=== PATIENT | male | born 1980 | race Caucasian/White ===

== ENCOUNTER 2016-12-09 10:51 | Emergency (ER) | payer SELFPAY ==
[~2016-12-09] VITALS: Ht 172.7 cm; Wt 68.0 kg
--- NOTE | 2016-12-09 10:55 | NUR ---
Patient is AOx4, verbally aggressive during triage process, respiration:easy, MUELLER, comfort and safety measures initiated.
--- NOTE | 2016-12-09 11:07 | NUR ---
Patient is resting comfortably on gurney with eyes closed, NAD.
[2016-12-09 11:49] LABS: CREATININE 0.9 mg/dL (0.6-1.3); POTASSIUM 3.3 mmol/L (3.5-5.1)
[2016-12-09 11:55] LABS: BILIRUBIN,TOTAL 0.8 mg/dL (0.2-1.0); TOTAL PROTEIN, SERUM 7.5 g/dL (6.4-8.2)
[2016-12-09 11:56] LABS: BASOPHILS % (AUTO) 0.1 % (0.0-2.0); EOSINOPHILS % (AUTO) 0.2 % (0.0-7.0); HEMOGLOBIN 14.5 G/DL (14.0-18.0); LYMPHOCYTES # (AUTO) 0.8 K/UL (0.8-4.8); MEAN CORPUSCULAR HEMOGLOBIN 28.9 UUG (27.0-31.0); MEAN CORPUSCULAR HGB CONC 34 g/dL (32.0-37.0); MEAN CORPUSCULAR VOLUME 85.5 FL (82.0-92.0); MONOCYTES # (AUTO) 0.8 K/UL (0.1-1.30); MONOCYTES % (AUTO) 6.1 % (0.0-11.0); NEUTROPHILS # (AUTO) 12.2 K/UL (1.8-8.9); NEUTROPHILS % (AUTO) 87.6 % (38.5-71.5); PLATELET COUNT (AUTO) 161 K/UL (150-450); RED BLOOD CELL COUNT(AUTO) 5.03 MIL/UL (4.7-6.1); WHITE BLOOD COUNT (AUTO) 13.8 K/UL (4.0-11.2)
[2016-12-09] MEDS ORDERED: IBUPROFEN 600 MG TABLET PO ONE (13:15)
--- NOTE | 2016-12-09 13:17 | NUR ---
Patient discharged to home in stable conditon. Written and verbal after care instructions given to patient. Patient verbalizes understanding of instructions to follow-up with his PMD but refused to sign the discharge papers. chemical supervisor was requested for staff safety.
[2016-12-09] MEDS ORDERED: IBUPROFEN 600 MG TABLET ONE (13:22)
== END 2016-12-09 13:17 | disposition home or self-care (01) ==
LOC: ER 10:52
DX: B34.9 Viral infection, unspecified (principal)
CPT/HCPCS: 36415; 80053; 85025; 87400; 99284; A4663

== ENCOUNTER 2022-04-09 10:39 | Inpatient (IN) | payer OTHER ==
[~2022-04-09] VITALS: Ht 175.3 cm; Wt 81.6 kg
[2022-04-09 12:17] LABS: HEMATOCRIT 35.9 % (36.7-47.1); MEAN CORPUSCULAR VOLUME 79.5 fL (73.0-96.2); PLATELET COUNT (AUTO) 309 K/uL (152-348)
--- NOTE | 2022-04-09 12:28 | NUR ---
PT IS IN ROOM #1B. DR CLEMENTE EVALUATED THE PT.
[2022-04-09 12:29] LABS: NEUTROPHILS % (MANUAL) 0 % (42-75)
[2022-04-09] MEDS ORDERED: VANCOMYCIN IV 1,500 MG in IV DEXTROSE 5% 250 ML IV ONE (12:30)
[2022-04-09] MEDS ORDERED: IV NS 1000 ML 1,000 ML IV ONE ×2 (12:30)
[2022-04-09] MEDS ORDERED: HYDROMORPHONE 1 MG/1 ML DISP.SYRIN IV ONE ×2 (12:30→13:45)
[2022-04-09] MEDS ORDERED: HYDROMORPHONE 1 MG/1 ML DISP.SYRIN ONE ×3 (12:33→20:55)
[2022-04-09] MEDS ORDERED: VANCOMYCIN IV 200 ML ONE (12:34)
[2022-04-09] MEDS ORDERED: VANCOMYCIN HCL 500 MG VIAL ONE (12:35)
[2022-04-09 12:36] LABS: ALANINE AMINOTRANSFERASE 33 U/L (16-63); ALKALINE PHOSPHATASE 165 U/L (50-136); ASPARTATE AMINOTRANSFERASE 16 U/L (15-37); BILIRUBIN,DIRECT 0.4 mg/dL (0.0-0.2); BILIRUBIN,TOTAL 0.8 mg/dL (0.2-1.0); CARBON DIOXIDE 33 mmol/L (21-32); CHLORIDE 95 mmol/L (98-107); CREATININE 0.8 mg/dL (0.6-1.3); GLUCOSE 115 mg/dL (74-106); TOTAL PROTEIN, SERUM 8.1 g/dL (6.4-8.2); UREA NITROGEN, BLOOD 11 mg/dL (7-18)
[2022-04-09 12:55] LABS: *BILIRUBIN,URIN 1+ (NEGATIVE); *BLOOD, URINE NEGATIVE (NEGATIVE); *CLARITY,URINE CLEAR (CLEAR); *COLOR,URINE YELLOW (YELLOW); *KETONES,URINE NEGATIVE (NEGATIVE); *UROBILINOGEN,URINE >=8.0 E.U./dl (NORMAL); LEUKOCYTE ESTERASE ,URINE NEGATIVE (NEGATIVE); NITRITE, URINE NEGATIVE (NEGATIVE); PH,URINE 6.5 (5.0-8.0); UGLUCOSE TRACE (NEGATIVE)
[2022-04-09] MEDS ORDERED: IV NORMAL SALINE 250 ML IV ONE (13:03)
[2022-04-09] MEDS ORDERED: IOHEXOL 300MG/ML 100 ML INFUS..BTL ONE (13:03)
[2022-04-09] MEDS ORDERED: SWABABLE VALVE TRANSFER SET EA MC ONE (13:03)
[2022-04-09] MEDS ORDERED: SULF1TAB48 PO (13:39)
[2022-04-09] MEDS ORDERED: OXYC30TA2 PO ×2 (13:41)
[2022-04-09 16:13] LABS: BACTERIA,URINE NONE SEEN /HPF (NONE SEEN); RBC,URINE 0-3 /HPF (0-3); WBC,URINE 0-3 /HPF (0-3)
[2022-04-09 16:14] LABS: MUCUS,URINE FEW /LPF (0-FEW); SQUAMOUS EPITHELIAL CELL,UR FEW /HPF (NONE SEEN)
[2022-04-09] MEDS ORDERED: MAGNESIUM HYDROXIDE 30 ML LIQUID UDC PO PRN (17:00)
[2022-04-09] MEDS ORDERED: IV NS 1000 ML 1,000 ML IV PRN (17:00)
[2022-04-09] MEDS ORDERED: ONDANSETRON 4 MG/2 ML VIAL IV PRN (17:00)
[2022-04-09] MEDS ORDERED: HYDROCODONE/APAP 10-325 MG TABLET PO PRN (17:00)
[2022-04-09] MEDS ORDERED: ACETAMINOPHEN 325 MG TABLET PO PRN (17:00)
[2022-04-09] MEDS ORDERED: REMEDY ESSENTIAL ZINC PASTE 113 GM TP PRN (17:00)
[2022-04-09] MEDS: HYDROMORPHONE 1 MG/1 ML DISP.SYRIN IV PRN ×2 (17:40→20:58)
[2022-04-09] MEDS ORDERED: PIPERACILLIN/TAZOBACTAM/D5W 50 ML IV ONE (17:41)
[2022-04-09] MEDS: PIPERACILLIN SODIUM/TAZOBACTAM 3.375 G in IV DEXTROSE 5% 50 ML IV SCH (17:50)
--- NOTE | 2022-04-09 18:26 | NUR ---
DR LIZANDRO ALDRIDGE AND DR HOFFMANN EVALUATED THE PT.
--- NOTE | 2022-04-09 20:27 | NUR ---
Report given to Nilda CAZARES. Patient will be going to third floor [address].
--- NOTE | 2022-04-09 21:16 | NUR ---
Patient taken to third floor room [address] via gurney with personal belongings. Patient in stable conditions, no signs of distress. Nilda CAZARES aware of patients arrival.
[2022-04-09 21:52] VITALS: BP 113/78
[2022-04-10] MEDS: OXYCODONE/APAP 5-325 MG TABLET PO PRN ×2 (00:22→21:52)
[2022-04-10] MEDS: ENOXAPARIN SODIUM 40 MG/0.4 ML DISP.SYRIN SQ SCH ×2 (00:23→20:29)
[2022-04-10] MEDS ORDERED: PIPERACILLIN SODIUM/TAZO 3.375 GM VIAL ONE (00:43)
[2022-04-10] MEDS: PIPERACILLIN SODIUM/TAZOBACTAM 3.375 G in IV DEXTROSE 5% 50 ML IV SCH ×4 (01:14→17:04)
[2022-04-10] MEDS: VANCOMYCIN IV 1,500 MG in IV DEXTROSE 5% 500 ML IV SCH ×2 (02:26→13:01)
[2022-04-10 04:40] VITALS: BP 127/84
[2022-04-10] MEDS: PANTOPRAZOLE SODIUM 40 MG TABLET.DR PO SCH (06:13)
[2022-04-10] MEDS: HYDROMORPHONE 1 MG/1 ML DISP.SYRIN IV PRN ×4 (06:15→20:19)
[2022-04-10 06:59] LABS: HEMATOCRIT 33.3 % (36.7-47.1); MEAN CORPUSCULAR HEMOGLOBIN 26.6 uug (23.8-33.4); PLATELET COUNT (AUTO) 313 K/uL (152-348)
[2022-04-10 07:29] LABS: CREATININE 0.8 mg/dL (0.6-1.3); MAGNESIUM 2.2 mg/dL (1.8-2.4); PHOSPHOROUS 3.4 mg/dL (2.5-4.9); POTASSIUM 3.3 mmol/L (3.5-5.1)
--- NOTE | 2022-04-10 08:26 | NUR ---
Patient arrived on the unit at 2105, from ER he is AAOX4. Patient was able to do his interview even though he looked very sleepy. No sign of respiratory distress observed. Patient is skin looks clean except for bilateral foot cellulitis and pitting edema observed upon assessment. His right hand has also swelling and redness. Patient did got some IV antibiotic; no sign of adverse effect observed or reported. Patient is very demanding of pain meds due to generalized pain specially when he is trying to urinate. Patient was also trying to have a BM but while interviewing patient he stated that he usually has a BM once every two weeks. Patient is still trying to have a BM this morning. We will continue to monitor patient for safety.
[2022-04-10] MEDS ORDERED: POTASSIUM CHLORIDE 10 MEQ TAB.PRT.SR PO ONE (08:30)
[2022-04-10] MEDS ORDERED: POTASSIUM CHLORIDE 20 MEQ TAB.PRT.SR PO ONE (10:30)
[2022-04-10 13:00] VITALS: BP 119/64
[2022-04-10 16:00] VITALS: BP 145/92
[2022-04-10 17:54] LABS: BAND % (MANUAL) 0 % (0-10); EOSINOPHILS % (MANUAL) 1 % (0-8); LYMPHOCYTES % (MANUAL) 8 % (20-40); MONOCYTES % (MANUAL) 15 % (2-10); NEUTROPHILS % (MANUAL) 76 % (42-75)
[2022-04-11] MEDS: PIPERACILLIN SODIUM/TAZOBACTAM 3.375 G in IV DEXTROSE 5% 50 ML IV SCH ×5 (00:16→23:50)
[2022-04-11] MEDS: HYDROMORPHONE 1 MG/1 ML DISP.SYRIN IV PRN ×6 (00:24→20:50)
[2022-04-11] MEDS: VANCOMYCIN IV 1,500 MG in IV DEXTROSE 5% 500 ML IV SCH (00:52)
[2022-04-11 04:55] VITALS: BP 139/92
--- NOTE | 2022-04-11 06:15 | NUR ---
Pt complained of pain throughout the night. Prn meds given as ordered Breakthrough med given x1. Pt continue on antibiotics Voiding without difficulty.
[2022-04-11] MEDS: PANTOPRAZOLE SODIUM 40 MG TABLET.DR PO SCH (06:31)
[2022-04-11] MEDS: OXYCODONE/APAP 5-325 MG TABLET PO PRN ×2 (06:32→18:00)
[2022-04-11 11:52] VITALS: BP 113/61
[2022-04-11] MEDS: VANCOMYCIN IV 1,250 MG in IV DEXTROSE 5% 250 ML IV SCH ×2 (14:55→22:01)
[2022-04-11 16:45] VITALS: BP 148/91
--- NOTE | 2022-04-11 16:53 | NUR ---
C/O pain throughout the day. Dilaudid frequency was increased from Q$H PRN to Q3H PRN per Dr. Pacheco. Patient requested each dose of Dilaudid 90 mins prior to due time. Educated on medication management and offered Percocet for break thru pain. However, patient decline offer. Temp elevated 101.7-Blood cultures drawn. Tylenol 650 mg administered.
[2022-04-11 20:25] VITALS: BP 128/77
[2022-04-11] MEDS: ENOXAPARIN SODIUM 40 MG/0.4 ML DISP.SYRIN SQ SCH (20:46)
[2022-04-12] MEDS: HYDROMORPHONE 1 MG/1 ML DISP.SYRIN IV PRN ×2 (00:51→03:46)
--- NOTE | 2022-04-12 03:48 | NUR ---
patient c/o pain and requesting for pain medication. Percocet breakthrough pain medication offered but patient refused to take it and started screaming and yelling for iv Dilaudid. education provided for medication management.
--- NOTE | 2022-04-12 04:20 | NUR ---
UNABLE TO LOCATE PATIENT IN HIS ROOM. EXERTED EFFORTS AND NOTIFIED APPROPRIATE PERSONNEL REGARDING PATIENT'S MISSING. PER SECURITY STAFF PATIENT RODE ON AN UBER AND LEFT AMA. FAMILY NOTIFIED AND ASK THEM TO CALL BACK THE HOSPITAL WHEN PATIENT REACH HOME SAFE.
== END 2022-04-12 05:02 | disposition left against medical advice (07) | DRG 872 ==
LOC: ER 10:39 → MEDSURG3 20:39
PROVIDERS: ADMIT Nurse Practitioner Acute Care; ATTEND Nurse Practitioner Acute Care
DX: A41.9 Sepsis, unspecified organism (principal); K61.0 Anal abscess; L03.115 Cellulitis of right lower limb; E87.20 Acidosis, unspecified; L02.818 Cutaneous abscess of other sites; M48.54XA Collapsed vertebra, not elsewhere classified, thoracic region, initial encounter for fracture; Z20.822 Contact with and (suspected) exposure to COVID-19; D64.9 Anemia, unspecified; G89.29 Other chronic pain; F17.210 Nicotine dependence, cigarettes, uncomplicated; D72.829 Elevated white blood cell count, unspecified; V29.99XS Rider (driver) (passenger) of other motorcycle injured in unspecified traffic accident, sequela; I89.0 Lymphedema, not elsewhere classified; I87.8 Other specified disorders of veins
CPT/HCPCS: 36415; 70030-TC; 83605; 83735; 84100; 84484; 85025; 85651; 85730; 87040; 93005; A4663; G0378; J1170; J1650; J2543; J3370; J7040; J7050; J7060; Q9967